=== PATIENT | female | born 1990 | race Caucasian/White ===

== ENCOUNTER 2019-04-04 15:09 | Emergency (ER) | payer MEDICAID ==
[~2019-04-04] VITALS: Ht 162.6 cm; Wt 64.9 kg
[~2019-04-04 15:09] MED LIST: HYDR50TA15 PO
[2019-04-04 15:12] VITALS: Ht 162.6 cm; Wt 64.9 kg
[2019-04-04] MEDS ORDERED: hydrOXYzine HCL 25 MG TAB PO ONE (16:00)
--- NOTE | 2019-04-04 17:24 | ERD ---
ER Documentation Chief Complaint Chief Complaint Epigastric burning 30 mins after eating, pt 27 weeks preg HPI 28 year old female presents to ED complaining of "pain with breathing" x earlier today. She states she is A0. She reports that she is currently 27 weeks . She states this feeling comes and goes without any specific triggers. This is worse with walking and better laying down. She denies any past hx of similar events. She only takes vitamins. She denies past med hx. She denies hx of blood clots or DVTs. [employer] application used for translation ROS All systems reviewed and are negative except as per history of present illness. Medications Home Meds Active Scripts Hydroxyzine Hcl* (Hydroxyzine Hcl*) 50 Mg Tablet, 50 MG PO Q6H PRN for ANXIETY, #30 TAB Prov:PINKY YATES PA-C 04/04/19 Allergies Allergies: Coded Allergies: No Known Allergy (Unverified , 04/04/19) PMhx/Soc Medical and Surgical Hx: pt denies Medical Hx, pt denies Surgical Hx Hx Alcohol Use: No Hx Substance Use: No Hx Tobacco Use: No Smoking Status: Never smoker FmHx Family History: No diabetes Physical Exam Vitals Vital Signs Date Temp Pulse Resp B/P (MAP) Pulse Ox O2 O2 Flow FiO2 Time Delivery Rate 04/04/19 98.1 64 20 113/70 99 17:28 (84) 04/04/19 98.7 99 24 120/79 99 15:12 (93) Physical Exam Const: No acute distress Head: Atraumatic Eyes: Normal Conjunctiva ENT: Normal External Ears, Nose and Mouth. Neck: Full range of motion. Resp: Clear to auscultation bilaterally Cardio: Regular rate and rhythm, Abd: Soft, non tender, slightly extended abd normal for . Back: No midline or flank tenderness Ext: No cyanosis, or edema Neur: Awake and alert Psych: Normal Mood and Affect Result Diagram: 04/04/19 1558 04/04/19 1558 Results 24 hrs Laboratory Tests Test 04/04/19 15:58 White Blood Count 10.1 10^3/ul Red Blood Count 3.84 10^6/ul Hemoglobin 12.6 g/dl Hematocrit 36.4 % Mean Corpuscular Volume 94.8 fl Mean Corpuscular Hemoglobin 32.8 pg Mean Corpuscular Hemoglobin Concent 34.6 g/dl Red Cell Distribution Width 13.2 % Platelet Count 199 10^3/UL Mean Platelet Volume 9.7 fl Immature Granulocytes % 0.500 % Neutrophils % 80.7 % Lymphocytes % 10.0 % Monocytes % 6.7 % Eosinophils % 1.8 % Basophils % 0.3 % Nucleated Red Blood Cells % 0.0 /100WBC Immature Granulocytes # 0.050 10^3/ul Neutrophils # 8.2 10^3/ul Lymphocytes # 1.0 10^3/ul Monocytes # 0.7 10^3/ul Eosinophils # 0.2 10^3/ul Basophils # 0.0 10^3/ul Nucleated Red Blood Cells # 0.0 10^3/ul Urine Color STRAW Urine Clarity CLEAR Urine pH 8.0 Urine Specific [place] 1.006 Urine Ketones NEGATIVE mg/dL Urine Nitrite NEGATIVE mg/dL Urine Bilirubin NEGATIVE mg/dL Urine Urobilinogen NEGATIVE mg/dL Urine Leukocyte Esterase NEGATIVE Juan/ul Urine Hemoglobin NEGATIVE mg/dL Urine Glucose NEGATIVE mg/dL Urine Total Protein NEGATIVE mg/dl Sodium Level 136 mmol/L Potassium Level 4.1 mmol/L Chloride Level 106 mmol/L Carbon Dioxide Level 22 mmol/L Anion Gap 8 Blood Urea Nitrogen 6 mg/dl Creatinine 0.48 mg/dl Est Glomerular Filtrat Rate mL/min > 60 mL/min Glucose Level 86 mg/dl Calcium Level 8.5 mg/dl Current Medications Medications Dose Sig/Sheldon Start Time Status Last (Trade) Ordered Route PRN Stop Time Admin Dose Reason Admin Hydroxyzine 50 mg ONCE ONCE 04/04/19 DC 04/04/19 HCl PO 16:00 04/04/19 15:51 (Atarax) 16:01 Procedures/MDM ED COURSE: The patient was stable throughout ED course. I kept the patient informed of laboratory and diagnostic imaging results throughout the ED course. DIAGNOSTIC IMAGING: Read by radiologist. PROCEDURE: US OB. CLINICAL INDICATION: Maternal shortness of breath TECHNIQUE: Transabdominal views of the pelvis are available for review. COMPARISON: OB ultrasound February 18, 2019 FINDINGS: Noted is a single intrauterine gestation in cephalic lie with positive heart beat measuring 146 beats per minute. Biparietal diameter measures 6.7 cm corresponding to a gestational age 27 weeks 0 days. Femur length measures 5.4 cm corresponding to a gestational age 28 weeks 4 days. Abdominal circumference clement ures 24.4 cm corresponding to a gestational age 28 weeks 5 days. Estimated weight is 1222 g. The FL/AC ratio is 22.1. Amniotic fluid index measures 13.5 cm. Estimated date of delivery by ultrasound criteria is June 27. Estimated age is 28 weeks 0 days. No gross anomaly is seen, however, no anatomic survey was performed. The placenta is fundal posterior grade 1 without evidence of previa. Maternal cervix was not measured. IMPRESSION: Single intrauterine gestation cephalic lie with positive heart beat of estimated gestational age 28 weeks 0 days. No gross anomaly. Fluid within normal limits. Posterior fundal grade 1 placenta. .Regan Richards MD, MD Date Time Electronically viewed and signed by .Regan Richards MD, MD on 04/04/2019 17:15 MEDICATIONS GIVEN: Hydroxazine Patient tolerated medication well with no adverse reactions. Patient reported improvement in pain. MEDICAL DECISION MAKING: Patient is a 28 year old A0 reporting dyspnea x today. I have low suspicion for DVT, PE, preeclampsia, eclampsia, pneumonia, threatened , missed , pneumothorax, or other emergent process. U/S was WNL and the baby was estimated to be 28 weeks. Pt was reassured and d/c with hydroxazine as needed and told to follow up with her OBGN. ALL questions answered. Pt given strict return to ED precautions if sx persist or worsen. Vital signs were reviewed. Patient is afebrile. Patient was not hypoxic. Patient was hemodynamically stable. Patient was told to follow up with primary care for further care and management. PRESCRIPTION: hydroxazine DISCHARGE: At this time, patient is stable for discharge and outpatient management. I have instructed the patient to follow-up with their primary care physician in 1-2 days. I have discussed with the patient the possibility of needing to see a specialist for further workup and imaging studies if symptoms persist. I have instructed the patient to promptly return to the ER for any new or worsening symptoms including increased pain, fever, nausea, vomiting, weakness or LOC. The patient expressed understanding of and agreement with this plan. All questions were answered. Home care instructions were provided. Disclaimer: Inadvertent spelling and grammatical errors are likely due to EHR/dictation software use and do not reflect on the overall quality of patient care. Also, please note that the electronic time recorded on this note does not necessarily reflect the actual time of the patient encounter. Departure Diagnosis: Primary Impression: Dyspnea Dyspnea type: unspecified Qualified Codes: R06.00 - Dyspnea, unspecified Additional Impression: Weeks of gestation: 28 weeks Qualified Codes: Z3A.28 - 28 weeks gestation of Condition: Fair Patient Instructions: Dyspnea Referrals: [facility] YOU HAVE RECEIVED A MEDICAL SCREENING EXAM AND THE RESULTS INDICATE THAT YOU DO NOT HAVE A CONDITION THAT REQUIRES URGENT TREATMENT IN THE EMERGENCY DEPARTMENT. FURTHER EVALUATION AND TREATMENT OF YOUR CONDITION CAN WAIT UNTIL YOU ARE SEEN IN YOUR DOCTORS OFFICE WITHIN THE NEXT 1-2 DAYS. IT IS YOUR RESPONSIBILITY TO MAKE AN APPOINTMENT FOR FOLOW-UP CARE. IF YOU HAVE A PRIMARY DOCTOR --you should call your primary doctor and schedule an appointment IF YOU DO NOT HAVE A PRIMARY DOCTOR YOU CAN CALL OUR PHYSICIAN REFERRAL HOTLINE AT IF YOU CAN NOT AFFORD TO SEE A PHYSICIAN YOU CAN CHOSE FROM THE FOLLOWING [facility] [address] [facility]. [facility] [address] [address] [facility] [address] [facility] [address] [facility]. [facility]. [address] [facility]. [facility] YOU HAVE RECEIVED A MEDICAL SCREENING EXAM AND THE RESULTS INDICATE THAT YOU DO NOT HAVE A CONDITION THAT REQUIRES URGENT TREATMENT IN THE EMERGENCY DEPARTMENT. FURTHER EVALUATION AND TREATMENT OF YOUR CONDITION CAN WAIT UNTIL YOU ARE SEEN IN YOUR DOCTORS OFFICE WITHIN THE NEXT 1-2 DAYS. IT IS YOUR RESPONSIBILITY TO MAKE AN APPOINTMENT FOR FOLOW-UP CARE. IF YOU HAVE A PRIMARY DOCTOR --you should call your primary doctor and schedule and appointment IF YOU DO NOT HAVE A PRIMARY DOCTOR YOU CAN CALL OUR PHYSICIAN REFERRAL HOTLINE AT . IF YOU CAN NOT AFFORD TO SEE A PHYSICIAN YOU CAN CHOSE FROM THE FOLLOWING [facility]: [facility] [address] [place] [address] [facility] [address] [place] [address] [facility] [address] [place] [address] Additional Instructions: Follow-up with your SOLE PAINTER in the next 1 to 2 days Llame al doctor MAANA y ronald romain RANCHO PARA DENTRO DE 1-2 MAHMOOD.Dgale a la secretaria que nosotros le instruimos hacer esta rancho.Avise o llame si jack condicin se empeora antes de la rancho. Regresa aqui si peor o no mejor. PINKY YATES PA-C Apr 04, 2019 17:24
[2019-04-04 17:28] VITALS: BP 113/70; PULSE 64; RESP 20
== END 2019-04-04 17:38 | disposition home or self-care (01) ==
LOC: FTE 15:09
DX: O26.892 Other specified pregnancy related conditions, second trimester (principal); R06.00 Dyspnea, unspecified; Z3A.28 28 weeks gestation of pregnancy
CPT/HCPCS: 36415; 76805; 80048; 81003; 85025; Z7502; Z7610